=== PATIENT | female | born 1975 | race Caucasian/White ===

== ENCOUNTER → 2016-10-04 | Outpatient (CLI) | payer OTHER ==
[~2016-10-04] MED LIST: CATHETER FLUSH 10 ML SYR IV PRN; IOHEXOL 350 MG/ML 100 ML (OMNIPAQUE 350) VIAL IV ONE; NS 100 ML (IVPB) BAG IV ONE
--- NOTE | 2016-10-04 15:01 | Diagnostic Imaging Report ---
PROCEDURE: CT head with and without contrast. TECHNIQUE: Multiple contiguous axial images were obtained through the brain before and after the administration of intravenous contrast. INDICATION: Vertigo. COMPARISON: CT head without contrast 02/27/2014. FINDINGS: No intracranial hemorrhage, mass effect, hydrocephalus or extra-axial fluid collections. No abnormal intracranial enhancement. No CT evidence of acute infarction. The visualized paranasal sinuses and mastoids are clear. Osseous structures are intact. IMPRESSION: Negative CT head without and with IV contrast. Dictated by: Dictated on workstation # [id number]
== END ==
LOC: RAD 14:02
PROVIDERS: ATTEND Pediatrics
DX: R42 Dizziness and giddiness (principal)
CPT/HCPCS: 70470

== ENCOUNTER → 2017-03-26 | Outpatient (CLI) | payer MEDICAID ==
--- NOTE | 2017-03-26 13:31 | Diagnostic Imaging Report ---
INDICATION: Palpable lumps in the outer and inner aspect of the right breast. Patient reportedly has had a biopsy in the right breast outer location with a benign result. COMPARISON: 04/04/2011. TECHNIQUE: Digital diagnostic mammography was performed bilaterally with a Computer Aided Detection (CAD) system. FINDINGS: Both breasts are heterogeneously dense, limiting the sensitivity of mammography. BB markers were placed at the areas of palpable abnormality in the right breast. No underlying mass is seen. No malignant appearing microcalcifications are seen within either breast. The axillae are unremarkable. IMPRESSION: No mammographic features suspicious for malignancy are identified. Even so, sonographic interrogation of the areas of palpable abnormality in the right breast is recommended for further evaluation. ACR BI-RADS Category 0: Incomplete. (Needs additional imaging evaluation). Result letter will be mailed to the patient. Note: At least 10% of breast cancer is not imaged by mammography. Dictated by: Dictated on workstation # [id number]
--- NOTE | 2017-03-26 20:06 | Diagnostic Imaging Report ---
INDICATION: Right breast lump. CORRELATION is made with an outside ultrasound of the right breast from 04/04/2011. The patient reportedly underwent a right breast biopsy in 2012 at the 9 o'clock location with a benign result. 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 FINDINGS: Sonographic interrogation of the right breast at the 9 o'clock location does show a macrolobulated mass measuring 1.7 x 0.9 x 1.5 cm. This does show internal vascularity. The patient's operative report from 2012 described the lesion biopsied to be 1.3 cm. There is a second region of hypoechogenicity at the 9:30 location of the right breast 4 cm from the nipple measuring 1.2 x 0.5 x 0.6 cm. No internal vascularity is seen. The 3 o'clock location was also evaluated due to patient reporting a palpable abnormality. No mass is identified. The right axilla is unremarkable. IMPRESSION: 1. Macrolobulated, solid hypoechoic mass at the 9 o'clock location of the right breast, 4 cm from the nipple. This does have features suggestive of a fibroadenoma, likely slightly increased in size when compared with outside reports from 6 years earlier. There is a second adjacent lobulated nodule as well, perhaps a smaller fibroadenoma. Followup with a right breast ultrasound in 6 months is recommended to show continued stability. No abnormality at the 3 o'clock location is identified. As BI-RADS category 3 ACR BI-RADS Category 3: Probably benign findings. Result letter will be mailed to the patient. Note: At least 10% of breast cancer is not imaged by mammography. Dictated by: Dictated on workstation # [id number]
== END ==
LOC: RAD 08:47
PROVIDERS: ATTEND Family Medicine
DX: N63.10 Unspecified lump in the right breast, unspecified quadrant (principal)
CPT/HCPCS: 76641; 77066

== ENCOUNTER 2017-09-17 17:18 | Emergency (ER) | payer MEDICAID ==
[~2017-09-17] VITALS: Ht 157.5 cm; Wt 49.9 kg
[2017-09-17] MEDS ORDERED: BUPIVACAINE 0.5% 30 ML (SENSORCAINE) VIAL INJ ONE (17:30)
[2017-09-17] MEDS ORDERED: TETANUS,DIPTH,PERTUSS P/F (BOOSTRIX) 0.5 ML VIAL IM ONE (17:30)
[2017-09-17] MEDS ORDERED: HYDROcodone/APAP 5 MG/325 MG (LORTAB) TAB PO ONE (17:30)
[2017-09-17] MEDS ORDERED: IBUPROFEN 800 MG (MOTRIN) TAB PO ONE (17:30)
[2017-09-17] MEDS ORDERED: LIDOCAINE 2% 20 ML (XYLOCAINE) VIAL INJ ONE (17:30)
[2017-09-17] MEDS ORDERED: LIDOCAINE 1% INJ 20 ML 20 ML VIAL INJ ONE (17:45)
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
[2017-09-17] MEDS ORDERED: HYDR-757 PO (17:59)
[2017-09-17 18:33] VITALS: BP 129/87
--- NOTE | 2017-09-17 18:37 | Diagnostic Imaging Report ---
PATIENT HISTORY: Injury to the right hand. TECHNIQUE: Three views of the right hand. COMPARISON: None. FINDINGS: There is a transverse fracture of the right third finger proximal phalangeal shaft, with minimal ulnar displacement. There is a minimally comminuted oblique fracture at the right fourth finger proximal phalangeal base, which demonstrates minimal dorsal angulation. No intra-articular extension is seen. There is also a minimally comminuted transverse fracture at the right fifth finger proximal phalangeal base with mild ulnar and dorsal angulation but no intra-articular extension seen. There is soft tissue edema about the right second finger. IMPRESSION: Minimally displaced fracture of the right third finger proximal phalanx and minimally angulated fractures of the right fourth and fifth finger proximal phalanges. No intra-articular extension is seen. Dictated by: Dictated on workstation # [id number]
--- OUTSIDE RECORDS SUMMARY | 2017-09-17 22:26 | XMS REPORT ---
Author Author TRACIE SEE Organization [facility] Address [address] [place] [address] Care Team Providers Care Ice Cream Truck Driver Name Role Phone TRACIE SEE Unavailable PROBLEMS Type Condition ICD9-CM Code [id number] Code Onset Dates Condition Status SNOMED Code Problem Migraine without aura and without status migrainosus, not intractable G43.009 Active 310087571 Problem Jerking R25.3 Active 106321139 Problem Vertigo R42 Active 903389593 Problem Moderate single current episode of major depressive disorder F32.1 Active 77784401 ALLERGIES No Known Allergies ENCOUNTERS Encounter Location Date Diagnosis [facility] [address] [address] Mar, Moderate single current episode of major depressive disorder F32.1 ; Vertigo R42 ; Migraine without aura and without status migrainosus, not intractable G43.009 and Vomiting, unspecified R11.10 [facility] [id number] [place] [address] Mar, Dysuria R30.0 ; Diarrhea, unspecified R19.7 ; Vomiting, unspecified R11.10 and Vertigo R42 [facility] [id number] [place] [address] Mar, Lump of right breast N63.[address] [address] Mar, Bacterial conjunctivitis of right eye H10.9 and Lump of right breast N63.10 [facility] [id number] [place] [address] Feb, [facility] [address] [place] [address] Dec, [facility] [address] [place] [address] Nov, Vertigo R42 ; Moderate single current episode of major depressive disorder F32.1 and Refused influenza vaccine Z28.21 [facility] [id number] [address] Nov, [facility] [id number] [place] [address] Nov, [facility] [id number] [place] [address] Nov, [facility] [id number] [place] [address] Nov, [facility] [id number] [place] [address] Oct, Jerking R25.3 and Moderate single current episode of major depressive disorder F32.1 [facility] [id number] [place] [address] Sep, [facility] [id number] [place] [address] Sep, Vertigo R42 [facility] [id number] [place] [address] Sep, Jerking R25.3 ; Vertigo R42 and Nausea and vomiting in adult patient R11.2 [facility] [id number] [address] Sep, [facility] [id number] [place] [address] Sep, Moderate single current episode of major depressive disorder F32.1 ; Vertigo R42 and Dysuria R30.0 [facility] [address] [address] Sep, Moderate single current episode of major depressive disorder F32.1 [facility] [address] [facility] [id number] [address] Aug, Herpes zoster B02.9 IMMUNIZATIONS No Known Immunizations SOCIAL HISTORY Never Assessed REASON FOR VISIT Shortness of breath, numbness in hands and legs intermittently > 1 year. Was seen by Dr Martinez and has a CT of the brain scheduled for this coming Sunday --[facility] PLAN OF CARE Activity Details Follow Up prn Reason: VITAL SIGNS Height 62 in 2016-10-02 Weight 123.9 lbs 2016-10-02 Temperature 98.1 degrees Fahrenheit 2016-10-02 Heart Rate 78 bpm 2016-10-02 Respiratory Rate 20 2016-10-02 Oximetry on room air:99 % 2016-10-02 BMI 22.66 kg/m2 2016-10-02 Blood pressure systolic 118 mmHg 2016-10-02 Blood pressure diastolic 90 mmHg 2016-10-02 MEDICATIONS Medication Instructions Dosage Frequency Start Date End Date Duration Status Cipro 500 mg Orally Twice a day 1 tablet 12h Sep, Sep, 07 days Active Trazodone HCl 50 mg Orally Once a day 1 tablet at bedtime as needed 24h Sep, 90 days Active Meclizine HCl 12.5 MG Orally twice a day 1/2 - 1 tablets as needed 12h Sep, Active Zoloft 100 MG Orally Once a day 1 tablet 24h Sep, 90 days Active RESULTS No Results PROCEDURES Procedure Date Ordered Result Body Site MEASURE BLOOD OXYGEN LEVEL Oct 02, 2016 INSTRUCTIONS MEDICATIONS ADMINISTERED No Known Medications MEDICAL (GENERAL) HISTORY Type Description Date Medical History hx of shingles Medical History History of head injury Surgical History pyloric stenosis - pyloromyotomy as an infant Surgical History section Hospitalization History Pneumonia
--- OUTSIDE RECORDS SUMMARY | 2017-09-17 22:26 | XMS REPORT ---
Author Author NETTE WRAY Organization [facility] Address [address] [place] [address] Care Team Providers Care Engineering Intern Name Role Phone NETTE WRAY Unavailable PROBLEMS Type Condition ICD9-CM Code [id number] Code Onset Dates Condition Status SNOMED Code Problem Migraine without aura and without status migrainosus, not intractable G43.009 Active 898373731 Problem Jerking R25.3 Active 315309649 Problem Vertigo R42 Active 356350686 Problem Moderate single current episode of major depressive disorder F32.1 Active 14006700 ALLERGIES No Information ENCOUNTERS Encounter Location Date Diagnosis [facility] [address] [address] Mar, Moderate single current episode of major depressive disorder F32.1 ; Vertigo R42 ; Migraine without aura and without status migrainosus, not intractable G43.009 and Vomiting, unspecified R11.10 [facility] [id number] [place] [address] Mar, 2017 Dysuria R30.0 ; Diarrhea, unspecified R19.7 ; Vomiting, unspecified R11.10 and Vertigo R42 [facility] [id number] [place] [address] 08 Mar, 2017 Lump of right breast N63.10 [facility] [address] [address] Mar, Bacterial conjunctivitis of right eye H10.9 and Lump of right breast N63.10 [facility] [id number] [place] [address] Feb, [facility] [address] [address] Dec, [facility] [address] [place] [address] Nov, Vertigo R42 ; Moderate single current episode of major depressive disorder F32.1 and Refused influenza vaccine Z28.21 [facility] [id number] [address] Nov, [facility] [id number] [place] [address] Nov, [facility] [id number] [place] [address] Nov, [facility] [id number] [place] [address] Nov, [facility] [id number] [place] [address] Oct, Jerking R25.3 and Moderate single current episode of major depressive disorder F32.1 [facility] [address] [place] [address] Sep, [facility] [id number] [place] [address] Sep, Vertigo R42 [facility] [id number] [place] [address] Sep, Jerking R25.3 ; Vertigo R42 and Nausea and vomiting in adult patient R11.2 [facility] [address] [address] Sep, [facility] [id number] [place] [address] Sep, Moderate single current episode of major depressive disorder F32.1 ; Vertigo R42 and Dysuria R30.0 [facility] [address] [address] Sep, Moderate single current episode of major depressive disorder F32.1 [facility] [address] [facility] [id number] [address] Aug, Herpes zoster B02.9 IMMUNIZATIONS No Known Immunizations SOCIAL HISTORY Never Assessed REASON FOR VISIT Note for work PLAN OF CARE VITAL SIGNS MEDICATIONS No Known Medications RESULTS No Results PROCEDURES No Known procedures INSTRUCTIONS MEDICATIONS ADMINISTERED No Known Medications MEDICAL (GENERAL) HISTORY Type Description Date Medical History hx of shingles Medical History History of head injury Surgical History pyloric stenosis - pyloromyotomy as an infant Surgical History section Hospitalization History Pneumonia
--- OUTSIDE RECORDS SUMMARY | 2017-09-17 22:26 | XMS REPORT ---
Author Author KANA GAYTAN Organization [facility] Address [address] [place] [address] Care Team Providers Care Human Resources Executive Assistant Name Role Phone KANA GAYTAN Unavailable PROBLEMS Type Condition ICD9-CM Code JNL59-MB Code Onset Dates Condition Status SNOMED Code Problem Migraine without aura and without status migrainosus, not intractable G43.009 Active 646885370 Problem Jerking R25.3 Active 725687812 Problem Vertigo R42 Active 429151931 Problem Moderate single current episode of major depressive disorder F32.1 Active 14974442 ALLERGIES No Information ENCOUNTERS Encounter Location Date Diagnosis [facility] [address] [address] Mar, Moderate single current episode of major depressive disorder F32.1 ; Vertigo R42 ; Migraine without aura and without status migrainosus, not intractable G43.009 and Vomiting, unspecified R11.10 [facility] [address] [address] Mar, Dysuria R30.0 ; Diarrhea, unspecified R19.7 ; Vomiting, unspecified R11.10 and Vertigo R42 [facility] [id number] [place] [address] Mar, Lump of right breast N63.10 [facility] [address] [address] Mar, Bacterial conjunctivitis of right eye H10.9 and Lump of right breast N63.10 [facility] [address] [address] Feb, [facility] [address] [address] Dec, [facility] [address] [place] [address] Nov, Vertigo R42 ; Moderate single current episode of major depressive disorder F32.1 and Refused influenza vaccine Z28.21 [facility] [id number] [address] Nov, [facility] [id number] [place] [address] Nov, [facility] [id number] [place] [address] Nov, [facility] [id number] [place] [address] Nov, [facility] [id number] [place] [address] Oct, Jerking R25.3 and Moderate single current episode of major depressive disorder F32.1 [facility] [id number] [place] [address] Sep, [facility] [id number] [place] [address] Sep, Vertigo R42 [facility] [id number] [place] [address] Sep, Jerking R25.3 ; Vertigo R42 and Nausea and vomiting in adult patient R11.2 [facility] [address] [address] Sep, [facility] [id number] [place] [address] Sep, Moderate single current episode of major depressive disorder F32.1 ; Vertigo R42 and Dysuria R30.0 [facility] [address], [place] [address] Sep, Moderate single current episode of major depressive disorder F32.1 [facility] [address] [facility] [id number] [address] Aug, Herpes zoster B02.9 IMMUNIZATIONS No Known Immunizations SOCIAL HISTORY Never Assessed REASON FOR VISIT mammogram order PLAN OF CARE VITAL SIGNS MEDICATIONS No Known Medications RESULTS Name Result Date Reference Range Mammogram Dx, Bilateral 2017-03-26 PROCEDURES No Known procedures INSTRUCTIONS MEDICATIONS ADMINISTERED No Known Medications MEDICAL (GENERAL) HISTORY Type Description Date Medical History hx of shingles Medical History History of head injury Surgical History pyloric stenosis - pyloromyotomy as an infant Surgical History section Hospitalization History Pneumonia
--- OUTSIDE RECORDS SUMMARY | 2017-09-17 22:26 | XMS REPORT ---
Author Author NETTE WRAY Organization [facility] Address [address] [place] [address] Care Team Providers Care Assistant Surveyor Name Role Phone NETTE WRAY Unavailable PROBLEMS Type Condition ICD9-CM Code [id number] Code Onset Dates Condition Status SNOMED Code Problem Migraine without aura and without status migrainosus, not intractable G43.009 Active 878247979 Problem Jerking R25.3 Active 672149604 Problem Vertigo R42 Active 280414738 Problem Moderate single current episode of major depressive disorder F32.1 Active 25964582 ALLERGIES No Information ENCOUNTERS Encounter Location Date Diagnosis [facility] [place] [address] [address] Mar, Moderate single current episode of major depressive disorder F32.1 ; Vertigo R42 ; Migraine without aura and without status migrainosus, not intractable G43.009 and Vomiting, unspecified R11.10 [facility] [id number] [place] [address] 09 Mar, 2017 Dysuria R30.0 ; Diarrhea, unspecified R19.7 ; Vomiting, unspecified R11.10 and Vertigo R42 [facility] [place] [id number] [place] [address] 08 Mar, 2017 Lump of right breast N63.10 [facility] [place] [address] [address] Mar, Bacterial conjunctivitis of right eye H10.9 and Lump of right breast N63.10 [facility] [place] [id number] [place] [address]336[address] Feb, [facility] [place] [address] [address] Dec, [facility] [place] [address] [place] [address] Nov, Vertigo R42 ; Moderate single current episode of major depressive disorder F32.1 and Refused influenza vaccine Z28.21 [facility] [place] [id number] [address] Nov, [facility] [place] [id number] [place] [address]- [address] Nov, [facility] [place] [id number] [place] [address]66- 1992 Nov, [facility] [place] [id number] [place] [address] 61751- 2537 Nov, [facility] [place] [id number] [place] [address] 10164- 9328 Oct, Jerking R25.3 and Moderate single current episode of major depressive disorder F32.1 [facility] [place] [address] [place] [address] 57856- 4313 Sep, [facility] [place] [id number] [place] [address]70- 9469 Sep, Vertigo R42 [facility] [place] [id number] [place] [address] 35954- 1427 Sep, Jerking R25.3 ; Vertigo R42 and Nausea and vomiting in adult patient R11.2 [facility] [place] [address] [address] Sep, [facility] [place] [id number] [place] [address] 40752- 2667 Sep, Moderate single current episode of major depressive disorder F32.1 ; Vertigo R42 and Dysuria R30.0 [facility] [place] [address] [address] Sep, Moderate single current episode of major depressive disorder F32.1 [facility] [address] [facility] [id number] [place] [address] Aug, Herpes zoster B02.9 IMMUNIZATIONS No Known Immunizations SOCIAL HISTORY Never Assessed REASON FOR VISIT PLAN OF CARE VITAL SIGNS MEDICATIONS No Known Medications RESULTS No Results PROCEDURES No Known procedures INSTRUCTIONS MEDICATIONS ADMINISTERED No Known Medications MEDICAL (GENERAL) HISTORY Type Description Date Medical History hx of shingles Medical History History of head injury Surgical History pyloric stenosis - pyloromyotomy as an infant Surgical History section Hospitalization History Pneumonia
--- OUTSIDE RECORDS SUMMARY | 2017-09-17 22:26 | XMS REPORT ---
Author Author RAJI MINER Organization [facility] Address [address] [place] [address] Care Team Providers Care Terminal Worker Name Role Phone SHEEHAN RAJI COSTELLO Unavailable PROBLEMS Type Condition ICD9-CM Code BVC49-RG Code Onset Dates Condition Status SNOMED Code Problem Migraine without aura and without status migrainosus, not intractable G43.009 Active 327440184 Problem Jerking R25.3 Active 499252302 Problem Vertigo R42 Active 860953556 Problem Moderate single current episode of major depressive disorder F32.1 Active 30977567 ALLERGIES No Known Allergies ENCOUNTERS Encounter Location Date Diagnosis [facility] [address] [address] Mar, Moderate single current episode of major depressive disorder F32.1 ; Vertigo R42 ; Migraine without aura and without status migrainosus, not intractable G43.009 and Vomiting, unspecified R11.10 [facility] [id number] [place] [address] Mar, Dysuria R30.0 ; Diarrhea, unspecified R19.7 ; Vomiting, unspecified R11.10 and Vertigo R42 [facility] [id number] [place] [address] Mar, Lump of right breast N63.[address] [address] Mar, Bacterial conjunctivitis of right eye H10.9 and Lump of right breast N63.10 [facility] [id number] [place] [address]- 2913 Feb, [facility] [address] [address] Dec, [facility] [address] [place] [address]- 8580 Nov, Vertigo R42 ; Moderate single current episode of major depressive disorder F32.1 and Refused influenza vaccine Z28.21 [facility] [address] [id number] [address] Nov, [facility] [id number] [place] [address]329- 4427 Nov, [facility] [id number] [place] [address]- 2057 Nov, [facility] [id number] [place] [address]56- 4[address] Nov, [facility] [id number] [place] [address]59- 6335 Oct, Jerking R25.3 and Moderate single current episode of major depressive disorder F32.1 [facility] [id number] [place] [address] 18654- [address] Sep, [facility] [id number] [place] [address]- 4[address] Sep, Vertigo R42 [facility] [id number] [place] [address]- [address] Sep, Jerking R25.3 ; Vertigo R42 and Nausea and vomiting in adult patient R11.2 [facility] [address] [id number] [address] Sep, [facility] [id number] [place] [address]- 0091 Sep, Moderate single current episode of major depressive disorder F32.1 ; Vertigo R42 and Dysuria R30.0 [facility] [address] [address] Sep, Moderate single current episode of major depressive disorder F32.1 [facility] [address] [facility] [id number] [place] [address] Aug, Herpes zoster B02.9 IMMUNIZATIONS No Known Immunizations SOCIAL HISTORY Never Assessed REASON FOR VISIT N/V/D for 2 days. also complaining of dizziness since yesterday. [email or web address], also complaining of dysuria for 2 days. PLAN OF CARE Activity Details Follow Up with Dr. Martinez on scheduled appointment. Reason: VITAL SIGNS Height 62 in 2017-03-23 Weight 116.2 lbs 2017-03-23 Temperature 99.5 degrees Fahrenheit 2017-03-23 Heart Rate 72 bpm 2017-03-23 Respiratory Rate 20 2017-03-23 BMI 21.25 kg/m2 2017-03-23 Blood pressure systolic 106 mmHg 2017-03-23 Blood pressure diastolic 62 mmHg 2017-03-23 MEDICATIONS Medication Instructions Dosage Frequency Start Date End Date Duration Status Zofran 8 MG Orally TID PRN 1 tablet Mar, Active Trazodone HCl 50 mg Orally Once a day 1 tablet at bedtime as needed 24h Sep, 90 days Active Zoloft 100 MG Orally Once a day 1 tablet 24h Sep, 90 days Active Topamax 50 mg Orally Twice a day 1 tablet 12h Feb, 90 days Active Flonase 50 MCG/ACT Nasally twice a day 1 spray in each nostril 12h Mar, 07 days Active Meclizine HCl 12.5 MG Orally twice a day 1/2 - 1 tablets as needed 12h Sep, Not-Taking Ofloxacin 0.3 % Ophthalmic Four times a day 1 drop into affected eye 6h Mar, Mar, 07 days Active Topamax 25 MG Orally Twice a day 1 tablet 12h 90 days Active RESULTS Name Result Date Reference Range UA LONG DIP (IN HOUSE) 2017-03-23 Lot # [id number] Exp date 2017 10 31 Clarity clear Color yellow Odor none GLU negative DIPIKA negative KET negative SG <=1.005 BLO negative pH 6.0 Protein negative URO 0.2 NIT negative SANDY negative Lot # [id number] Exp date May 2017 PROCEDURES Procedure Date Ordered Result Body Site URINALYSIS, AUTO, W/O SCOPE Mar 23, 2017 INSTRUCTIONS MEDICATIONS ADMINISTERED No Known Medications MEDICAL (GENERAL) HISTORY Type Description Date Medical History hx of shingles Medical History History of head injury Surgical History pyloric stenosis - pyloromyotomy as an infant Surgical History section Hospitalization History Pneumonia
--- OUTSIDE RECORDS SUMMARY | 2017-09-17 22:26 | XMS REPORT ---
Author Author KEVIN Khalil [facility] Address [address] [place] [address] Care Team Providers Care Asparagus Cutter Name Role Phone KEVIN Khalil Unavailable PROBLEMS Type Condition ICD9-CM Code OXM82-KG Code Onset Dates Condition Status SNOMED Code Problem Migraine without aura and without status migrainosus, not intractable G43.009 Active 437772642 Problem Jerking R25.3 Active 875628815 Problem Vertigo R42 Active 655270435 Problem Moderate single current episode of major depressive disorder F32.1 Active 11446116 ALLERGIES No Known Allergies ENCOUNTERS Encounter Location Date Diagnosis [place] [address] [address] Mar, Moderate single current episode of major depressive disorder F32.1 ; Vertigo R42 ; Migraine without aura and without status migrainosus, not intractable G43.009 and Vomiting, unspecified R11.10 [facility] [address] [address] Mar, Dysuria R30.0 ; Diarrhea, unspecified R19.7 ; Vomiting, unspecified R11.[address] [facility] [id number] [place] [address] Mar, Lump of right breast N63.10 [place] [address] [address] Mar, Bacterial conjunctivitis of right eye H10.9 and Lump of right breast N63.10 [place] [address] [address] Feb, [place] [address] [place] [address] Dec, [facility] [id number] [place] [address]- [address] Nov, Vertigo R42 ; Moderate single current episode of major depressive disorder F32.1 and Refused influenza vaccine Z28.21 [facility] [id number] [place] [address]- 5079 Nov, [facility] [id number] [place] [address]- [address] Nov, [facility] [id number] [place] [address]- 5814 Nov, [facility] [id number] [place] [address]60- 2857 Nov, [facility] [id number] [place] [address] 31103- 1736 Oct, Jerking R25.3 and Moderate single current episode of major depressive disorder F32.1 [facility] [id number] [place] [address]21- [address]163 Sep, [facility] [id number] [place] [address] 36460- 0774 Sep, Vertigo R42 [facility] [id number] [place] [address]13- 2143 Sep, Jerking R25.3 ; Vertigo R42 and Nausea and vomiting in adult patient R11.2 [facility] [id number] [place] [address]476- [address]171 Sep, [facility] [id number] [place] [address]64- 1401 Sep, Moderate single current episode of major depressive disorder F32.1 ; Vertigo R[address] [facility] [address] [address] Sep, Moderate single current episode of major depressive disorder F32.1 [facility] [address] [facility] [id number] [place] [address] Aug, Herpes zoster B02.9 IMMUNIZATIONS No Known Immunizations SOCIAL HISTORY Never Assessed REASON FOR VISIT red area and white blisters under left breast that is very painful according to ptCitlalli parada, has been there for 2 days and has gotten worse. PLAN OF CARE Activity Details Follow Up prn Reason: VITAL SIGNS Height 62 in 2016-09-04 Weight 128.4 lbs 2016-09-04 Temperature 97.9 degrees Fahrenheit 2016-09-04 Heart Rate 76 bpm 2016-09-04 Respiratory Rate 18 2016-09-04 BMI 23.48 kg/m2 2016-09-04 Blood pressure systolic 128 mmHg 2016-09-04 Blood pressure diastolic 80 mmHg 2016-09-04 MEDICATIONS Medication Instructions Dosage Frequency Start Date End Date Duration Status Mupirocin 2 % Externally Three times a day 1 application to affected area 8h Aug, Aug, 5 day(s) Active Valacyclovir HCl 500 MG Orally every 8 hrs 2 tablets 8h Aug, Aug, 7 days Active Hydrocodone-Acetaminophen 5-325 MG Orally every 6 hrs 1 tablet as needed 6h Aug, Aug, 5 days Active RESULTS No Results PROCEDURES No Known procedures INSTRUCTIONS MEDICATIONS ADMINISTERED No Known Medications MEDICAL (GENERAL) HISTORY Type Description Date Medical History hx of shingles Medical History History of head injury Surgical History pyloric stenosis - pyloromyotomy as an infant Surgical History section Hospitalization History Pneumonia
--- OUTSIDE RECORDS SUMMARY | 2017-09-17 22:26 | XMS REPORT ---
Author Author NETTE WRAY Organization [facility] Address [address] [place] [address] Care Team Providers Care Process Equipment Operator Name Role Phone NETTE WRAY Unavailable PROBLEMS Type Condition ICD9-CM Code ZWI53-TP Code Onset Dates Condition Status SNOMED Code Problem Migraine without aura and without status migrainosus, not intractable G43.009 Active 288793956 Problem Jerking R25.3 Active 072389587 Problem Vertigo R42 Active 780466278 Problem Moderate single current episode of major depressive disorder F32.1 Active 79154694 ALLERGIES No Information ENCOUNTERS Encounter Location Date Diagnosis [facility] [address] [address] Mar, Moderate single current episode of major depressive disorder F32.1 ; Vertigo R42 ; Migraine without aura and without status migrainosus, not intractable G43.009 and Vomiting, unspecified R11.10 [facility] [id number] [place] [address] 09 Mar, 2017 Dysuria R30.0 ; Diarrhea, unspecified R19.7 ; Vomiting, unspecified R11.10 and Vertigo R42 [facility] [id number] [place] [address]10- [address] Mar, Lump of right breast N63.10 [facility] [address] [address] Mar, Bacterial conjunctivitis of right eye H10.9 and Lump of right breast N63.10 [facility] [id number] [place] [address] 31207- [address] Feb, [facility] [address] [address] Dec, [facility] [address] [place] [address]13- 5658 Nov, Vertigo R42 ; Moderate single current episode of major depressive disorder F32.1 and Refused influenza vaccine Z28.21 [facility] [id number], [place] [address] Nov, [facility] [id number] [place] [address] 05536- 0737 Nov, [facility] [id number] [place] [address] 72122- 6721 Nov, [facility] [id number] [place] [address] 81543- 9604 Nov, [facility] [id number] [place] [address] 57133- 8769 Oct, Jerking R25.3 and Moderate single current episode of major depressive disorder F32.1 [facility] [address] [place] [address] 50278- 5963 Sep, [facility] [id number] [place] [address] 81430- 0297 Sep, Vertigo R42 [facility] [id number] [place] [address] 32748- 3319 Sep, Jerking R25.3 ; Vertigo R42 and Nausea and vomiting in adult patient R11.2 [facility] [address], [place] [address] Sep, [facility] [id number] [place] [address] 52173- 2250 Sep, Moderate single current episode of major depressive disorder F32.1 ; Vertigo R42 and Dysuria R30.0 [facility] [address], [place] [address] Sep, Moderate single current episode of major depressive disorder F32.1 [facility] [address] [facility] [id number] [place] [address] Aug, Herpes zoster B02.9 IMMUNIZATIONS No Known Immunizations SOCIAL HISTORY Never Assessed REASON FOR VISIT Neurology PLAN OF CARE VITAL SIGNS MEDICATIONS Medication Instructions Dosage Frequency Start Date End Date Duration Status Topamax 50 mg Orally Twice a day 1 tablet 12h Feb, 90 days Active Topamax 25 MG Orally Twice a day 1 tablet 12h 90 days Active RESULTS No Results PROCEDURES No Known procedures INSTRUCTIONS MEDICATIONS ADMINISTERED No Known Medications MEDICAL (GENERAL) HISTORY Type Description Date Medical History hx of shingles Medical History History of head injury Surgical History pyloric stenosis - pyloromyotomy as an infant Surgical History section Hospitalization History Pneumonia
--- OUTSIDE RECORDS SUMMARY | 2017-09-17 22:26 | XMS REPORT ---
Author Author NETTE WRAY Organization [facility] Address [address] [place] [address] Care Team Providers Care Facility Service Manager Name Role Phone NETTE WRAY Unavailable PROBLEMS Type Condition ICD9-CM Code WCV47-JW Code Onset Dates Condition Status SNOMED Code Problem Migraine without aura and without status migrainosus, not intractable G43.009 Active 133270494 Problem Jerking R25.3 Active 109463925 Problem Vertigo R42 Active 859664540 Problem Moderate single current episode of major depressive disorder F32.1 Active 16682140 ALLERGIES No Known Allergies ENCOUNTERS Encounter Location Date Diagnosis [facility] [address] [address] Mar, Moderate single current episode of major depressive disorder F32.1 ; Vertigo R42 ; Migraine without aura and without status migrainosus, not intractable G43.009 and Vomiting, unspecified R11.10 [facility] IN [facility] [id number] [place] [address] Mar, Dysuria R30.0 ; Diarrhea, unspecified R19.7 ; Vomiting, unspecified R11.10 and Vertigo R42 [facility] [id number] [place] [address]87- 0[address] Mar, Lump of right breast N63.10 [facility] [address] [address] Mar, Bacterial conjunctivitis of right eye H10.9 and Lump of right breast N63.10 [facility] [id number] [place] [address] 8[address]46- 1410 Feb, [facility] [address] [address] Dec, [facility] [address] [place] [address] 8[address]29- 5334 Nov, Vertigo R42 ; Moderate single current episode of major depressive disorder F32.1 and Refused influenza vaccine Z28.21 [facility] [id number] [address] Nov, [facility] [id number] [place] [address] 82198- 5358 Nov, [facility] [id number] [place] [address] 65427- 0431 Nov, [facility] [id number] [place] [address]84- 5275 Nov, [facility] [id number] [place] [address] 21888- 4640 Oct, Jerking R25.3 and Moderate single current episode of major depressive disorder F32.1 [facility] [id number] [place] [address] 30580- 4147 Sep, [facility] [id number] [place] [address] 94663- 5136 Sep, Vertigo R42 [facility] [id number] [place] [address] 34774- 4297 Sep, Jerking R25.3 ; Vertigo R42 and Nausea and vomiting in adult patient R11.2 [facility] [address] [address] Sep, [facility] [address] [place] [id number] [place] [address]22- 0637 Sep, Moderate single current episode of major depressive disorder F32.1 ; Vertigo R42 and Dysuria R30.0 [facility] [address] [address] Sep, Moderate single current episode of major depressive disorder F32.1 [facility] [address] [facility] [id number] [place] [address] Aug, Herpes zoster B02.9 IMMUNIZATIONS No Known Immunizations SOCIAL HISTORY Never Assessed REASON FOR VISIT CT f/u, Jerking has gotten worse, work put her on leave. Happening when sitting and sleeping, keeping her awake. Starts in lower back then moves up torso.Causing nausea., Before the CT and off work, was seen in [place]. Legs and arms numb, dizzy, felt like going to pass out, difficulty walking. They were too busy to see her in [place] and sent her to , was ordered meclizine. , CBrumbackRN PLAN OF CARE Activity Details Follow Up 6 Weeks Reason:depression/vertigo VITAL SIGNS Height 62 in 2016-10-24 Weight 121.7 lbs 2016-10-24 Temperature 98.1 degrees Fahrenheit 2016-10-24 Heart Rate 72 bpm 2016-10-24 Respiratory Rate 18 2016-10-24 BMI 22.26 kg/m2 2016-10-24 Blood pressure systolic 122 mmHg 2016-10-24 Blood pressure diastolic 84 mmHg 2016-10-24 MEDICATIONS Medication Instructions Dosage Frequency Start Date End Date Duration Status Trazodone HCl 50 mg Orally Once a [...]
--- OUTSIDE RECORDS SUMMARY | 2017-09-17 22:26 | XMS REPORT ---
Author Author NETTE WRAY Organization [facility] Address [address] [place] [address] Care Team Providers Care Pcb Designer Name Role Phone NETTE WRAY Unavailable PROBLEMS Type Condition ICD9-CM Code JCW01-RU Code Onset Dates Condition Status SNOMED Code Problem Migraine without aura and without status migrainosus, not intractable G43.009 Active 628546803 Problem Jerking R25.3 Active 385986594 Problem Vertigo R42 Active 457534819 Problem Moderate single current episode of major depressive disorder F32.1 Active 33177844 ALLERGIES No Known Allergies ENCOUNTERS Encounter Location Date Diagnosis [facility] [address] [address] Mar, Moderate single current episode of major depressive disorder F32.1 ; Vertigo R42 ; Migraine without aura and without status migrainosus, not intractable G43.009 and Vomiting, unspecified R11.10 [facility] [id number] [place] [address] 09 Mar, 2017 Dysuria R30.0 ; Diarrhea, unspecified R19.7 ; Vomiting, unspecified R11.10 and Vertigo R42 [facility] [id number] [place] [address] Mar, Lump of right breast N63.10 [facility] [address] [address] Mar, Bacterial conjunctivitis of right eye H10.9 and Lump of right breast N63.10 [facility] [id number] [place] [address] Feb, [facility] [address] [address] Dec, [facility] [address] [place] [address] Nov, Vertigo R42 ; Moderate single current episode of major depressive disorder F32.1 and Refused influenza vaccine Z28.21 [facility] [id number] [address] Nov, [facility] [id number] [place] [address] Nov, [facility] [id number] [place] [address] Nov, [facility] [id number] [place] [address] Nov, [facility] [id number] [place] [address] Oct, Jerking R25.3 and Moderate single current episode of major depressive disorder F32.1 [facility] [id number] [place] [address] Sep, [facility] [id number] [place] [address] Sep, Vertigo R42 [facility] [id number] [place] [address] Sep, Jerking R25.3 ; Vertigo R42 and Nausea and vomiting in adult patient R11.2 [facility] [address] [place] [address] Sep, [facility] [id number] [place] [address] Sep, Moderate single current episode of major depressive disorder F32.1 ; Vertigo R42 and Dysuria R30.0 [facility] [address], [place] [address] Sep, Moderate single current episode of major depressive disorder F32.1 [facility] [address] [facility] [id number] [place] [address] Aug, Herpes zoster B02.9 IMMUNIZATIONS No Known Immunizations SOCIAL HISTORY Never Assessed REASON FOR VISIT Establish Care-YOMAIRA Jama, C/o of vertigo that is always there. Feels as if she is going to pass out. , A lot of situation stress w/ boyfriend. Tearful. Exhausted. States she is an "emotional basketcase", Trouble sleeping, constant fatigue, Breast lump PLAN OF CARE Activity Details Follow Up 2 Weeks Reason:depression VITAL SIGNS Height 62 in 2016-09-14 Weight 126.9 lbs 2016-09-14 Temperature 98.6 degrees Fahrenheit 2016-09-14 Heart Rate 90 bpm 2016-09-14 Respiratory Rate 18 2016-09-14 BMI 23.21 kg/m2 2016-09-14 Blood pressure systolic 122 mmHg 2016-09-14 Blood pressure diastolic 80 mmHg 2016-09-14 MEDICATIONS Medication Instructions Dosage Frequency Start Date End Date Duration Status Trazodone HCl 50 mg Orally Once a day 1 tablet at bedtime as needed 24h Sep, 90 days Active Zoloft 50 mg Orally Once a day 1 tablet 24h Sep, 30 day(s) Active RESULTS No Results PROCEDURES No Known procedures INSTRUCTIONS MEDICATIONS ADMINISTERED No Known Medications MEDICAL (GENERAL) HISTORY Type Description Date Medical History hx of shingles Medical History History of head injury Surgical History pyloric stenosis - pyloromyotomy as an infant Surgical History section Hospitalization History Pneumonia
--- OUTSIDE RECORDS SUMMARY | 2017-09-17 22:27 | XMS REPORT | Continuity of Care Document ---
Author Author [facility] Address Unknown Phone Unavailable Allergies Active Description Code Type Severity Reaction Onset Reported/Identified Relationship to Patient Clinical Status Yes No Known Drug Allergies [id number] Drug Allergy Unknown N/A 02/27/2014 Medications There is no data. Problems Date Dx Coded Attending Type Code Diagnosis Diagnosed By 03/31/2011 D 623.5 NONINFECT VAG LEUKORRHEA 07/29/2012 JIMI DAVENPORT MD 564.00 CONSTIPATION NOS 07/29/2012 JIMI DAVENPORT MD 729.5 PAIN IN LIMB 07/29/2012 JIMI DAVENPORT MD 780.52 INSOMNIA NOS 07/29/2012 JIMI DAVENPORT MD 787.01 NAUSEA WITH VOMITING 07/29/2012 JIMI DAVENPORT MD 919.4 INSECT BITE NEC 07/29/2012 JIMI DAVENPORT MD E000.9 EXT CAUSE STATUS NOS 07/29/2012 JIMI DAVENPORT MD E030 ACTIVITY NOS 07/29/2012 JIMI DAVENPORT MD E849.[address] NOS 07/29/2012 JIMI DAVENPORT MD E906.4 NONVENOM ARTHROPOD BITE 10/23/2012 TERE RUBY 780.60 FEVER NOS 10/23/2012 TERE RUBY 789.00 ABDOMINAL PAIN, UNSPECIF 02/27/2014 ALEM VILLAGOMEZ MD Ot 780.4 02/27/2014 IRENE BERG MD Ot 311 DEPRESSIVE DISORDER NEC 02/27/2014 IRENE BERG MD Ot 780.4 DIZZINESS AND GIDDINESS 02/27/2014 ALEM VILLAGOMEZ MD Ot 780.4 10/03/2016 ALEM VILLAGOMEZ MD, Ot 780.4 DIZZINESS AND GIDDINESS 10/04/2016 ALEM VILLAGOMEZ MD Ot 780.4 DIZZINESS AND GIDDINESS 10/04/2016 ALEM VILLAGOMEZ MD, Ot 780.4 DIZZINESS AND GIDDINESS 10/05/2016 NETTE RODNEY MD Ot R42 DIZZINESS AND GIDDINESS 11/01/2016 NETTE RODNEY MD Ot R42 DIZZINESS AND GIDDINESS 11/24/2016 NETTE RODNEY MD Ot R42 DIZZINESS AND GIDDINESS 01/09/2017 NETTE RODNEY MD Ot R42 DIZZINESS AND GIDDINESS 01/31/2017 NETTE RODNEY MD Ot R42 DIZZINESS AND GIDDINESS 01/31/2017 DAHLIA QUIROZ, ALEM L Ot 780.4 DIZZINESS AND GIDDINESS 01/31/2017 NETTE RODNEY MD Ot R42 DIZZINESS AND GIDDINESS 03/26/2017 DAHLIA QUIROZ, ALEM L Ot 780.4 DIZZINESS AND GIDDINESS 03/26/2017 NETTE RODNEY MD Ot R42 DIZZINESS AND GIDDINESS 03/27/2017 LUKAS QUIROZ, KANA R Ot N63.10 UNSPECIFIED LUMP IN THE RIGHT BREAST, UN 03/27/2017 KANA GAYTAN MD Ot N63.10 UNSPECIFIED LUMP IN THE RIGHT BREAST, UN Procedures Code Description [place] [address] CULTURE, BACTERIA, OTHER ETHEL QUIROZ, JIMI Burgess 03/31/2011 11359 ROUTINE VENIPUNCTURE ETHEL QUIROZ, JIMI Burgess 07/29/2012 97326 COMPREHEN METABOLIC PANEL ETHEL QUIROZ, IJMI Burgess 07/29/2012 24503 URINALYSIS, AUTO W/SCOPE ETHEL QUIROZ, JIMI Burgess 07/29/2012 69430 COMPLETE CBC W/AUTO DIFF WBC ETHEL QUIROZ, JIMI Burgess 07/29/2012 99662 ROUTINE VENIPUNCTURE TERE RUBY 10/23/2012 13031 COMPREHEN METABOLIC PANEL TERE RUBY 10/23/2012 37222 ASSAY OF AMYLASE TERE RUBY 10/23/2012 17579 ASSAY OF LIPASE TERE RUBY 10/23/2012 96799 BL SMEAR W/DIFF WBC COUNT TERE RUBY 10/23/2012 08236 COMPLETE CBC, AUTOMATED TERE RUBY 10/23/2012 92219 HETEROPHILE ANTIBODIES TERE RUBY 10/23/2012 93196 MYCOPLASMA ANTIBODY TERE RUBY 10/23/2012 Results Test Result Range COMPLETE BLOOD COUNT - 07/29/12 11:44 Platelet 281 10^3u 142-424 MPV 10.2 FL 9.4-12.4 [place] # 0.48 10^3u 0.0-1.0 RBC 3.81 10^6u 4.04-6.13 [place] % 10.0 % 0-12 RDW 12.9 % 11.6-14.8 Neut # 2.66 10^3u 2.0-6.9 Neut % 55.7 % 37-80 WBC 4.78 10^3u 4.60-10.20 MCV 91.3 FL 80.0-97.0 Baso # 0.03 10^3u 0.0-0.1 Baso % 0.6 % 0-2 Eos # 0.31 10^3u 0-0.7 Eos % 6.5 % 0-7 Lymph % 27.2 % 10-50 MCHC 33.9 G/DL 31.8-35.4 MCH 31.0 PG 27.0-31.2 Lymph # 1.30 10^3u 0.6-3.4 HGB 11.8 G/DL 12.2-18.1 HCT 34.8 % 37.7-53.7 Urinalysis - 07/29/12 11:44 Glucose Negative Negative Leukocyte Negative Negative Nitrite Negative Negative pH 7.5 5.5-7.5 Urine Appearance Clear Clear Protein Negative Negative Ketones Negative Negative Urobilinogen 0.2 0.2-1.0 Urine RBC N0-2 Specific [place] 1.020 1.010-1.020 Urine Bacteria Trace Blood Negative Negative Color Yellow Yellow Squamous Epithelial Cells Trace Bilirubin Negative Negative CMP - 07/29/12 11:44 Osmo Calculated 271 MOSM 261-280 Sodium 142 MMOLL 137-145 T. Protein 6.8 G/DL 6.3-8.2 Potassium 4.3 MMOLL 3.6-5.0 T Bili 0.3 MG/DL 0.2-1.3 Calcium 9.3 MG/DL 8.4-10.2 BUN 10 MG/DL 7-21 Chloride 107 MMOLL 98-107 AST 43 U/L 15-46 ALT 53 U/L 7-56 Albumin 3.8 G/DL 3.5-5.0 A/G Ratio 1.2 RATIO 1.2-2.2 Bun/Creat 16.6 RATIO 7-25 Alk Phos 63 U/L 38-126 CO2 25 MMOLL 22-30 Glucose 82 MG/DL 65-110 Globulin 3.0 2.4-3.5 Creatinine 0.6 MG/DL 0.7-1.5 [place] Screen - 10/23/12 17:06 [place] Screen NEG Negative Mycoplasma Antibody - 10/23/12 17:06 Mycoplasma Antibody NEG Negative COMPLETE BLOOD COUNT - 10/23/12 17:06 Platelet 315 10^3u 142-424 MPV 10.0 FL 9.4-12.4 [place] # 1.02 10^3u 0.0-1.0 [place] 11.0 RBC 3.61 10^6u 4.04-6.13 [place] % 10.3 % 0-12 RDW 12.5 % 11.6-14.8 Seg 69.0 Neut # 7.23 10^3u 2.0-6.9 Neut % 72.8 % 37-80 WBC 9.93 10^3u 4.60-10.20 MCV 88.9 FL 80.0-97.0 Baso # 0.04 10^3u 0.0-0.1 Baso % 0.4 % 0-2 Eos 2.0 Eos # 0.22 10^3u 0-0.7 Eos % 2.2 % 0-7 Lymph % 14.3 % 10-50 MCHC 34.0 G/DL 31.8-35.4 MCH 30.2 PG 27.0-31.2 Lymph # 1.42 10^3u 0.6-3.4 Lymph 18.0 HGB 10.9 G/DL 12.2-18.1 HCT 32.1 % 37.7-53.7 CMP - 10/23/12 17:06 Osmo Calculated 264 MOSM 261-280 Sodium 138 MMOLL 137-145 T. Protein 7.5 G/DL 6.3-8.2 Potassium 3.9 MMOLL 3.6-5.0 T Bili 0.4 MG/DL 0.2-1.3 Calcium 9.3 MG/DL 8.4-10.2 BUN 9 MG/DL 7-21 Chloride 100 MMOLL 98-107 AST 51 U/L 15-46 ALT 52 U/L 7-56 Albumin 3.8 G/DL 3.5-5.0 A/G Ratio 1.0 RATIO 1.2-2.2 Bun/Creat 12.9 RATIO 7-25 Alk Phos 121 U/L 38-126 CO2 25 MMOLL 22-30 Glucose 83 MG/DL 65-110 Globulin 3.7 2.4-3.5 Creatinine 0.7 MG/DL 0.7-1.5 Amylase - 10/23/12 17:06 Amylase 51 U/L 30-110 Lipase - 10/23/12 17:06 Lipase 92 U/L 23-300 CBC With Differential/Platelet - 09/28/16 09:19 WBC 5.9 x10E3/uL 3.4-10.8 RBC 4.32 x10E6/uL 3.77-5.28 Hemoglobin 12.4 g/dL 11.1-15.9 Hematocrit 37.6 % 34.0-46.6 MCV 87 fL 79-97 MCH 28.7 pg 26.6-33.0 MCHC 33.0 g/dL 31.5-35.7 RDW 14.6 % 12.3-15.4 Platelets 302 x10E3/uL 150-379 Neutrophils 65 % Lymphs 20 % Monocytes 12 % Eos 2 % Basos 1 % Neutrophils (Absolute) 3.9 x10E3/uL 1.4-7.0 Lymphs (Absolute) 1.2 x10E3/uL 0.7-3.1 Monocytes(Absolute) 0.7 x10E3/uL 0.1-0.9 Eos (Absolute) 0.1 x10E3/uL 0.0-0.4 Baso (Absolute) 0.0 x10E3/uL 0.0-0.2 Immature Granulocytes 0 % Immature Grans (Abs) 0.0 x10E3/uL 0.0-0.1 Comp. Metabolic Panel (14) - 09/28/16 09:19 Glucose, Serum 84 mg/dL 65-99 BUN 11 mg/dL 6-20 Creatinine, Serum 0.67 mg/dL 0.57-1.00 eGFR If NonAfricn Am 111 mL/min/1.73 >59 eGFR If Africn Am 128 mL/min/1.73 >59 BUN/Creatinine Ratio 16 9-23 Sodium, Serum 139 mmol/L 134-144 Potassium, Serum 4.2 mmol/L 3.5-5.2 Chloride, Serum 103 mmol/L 96-106 Carbon Dioxide, Total 21 mmol/L 18-29 Calcium, Serum 9.4 mg/dL 8.7-10.2 Protein, Total, Serum 6.9 g/dL 6.0-8.5 Albumin, Serum 4.2 g/dL 3.5-5.5 Globulin, Total 2.7 g/dL 1.5-4.5 A/G Ratio 1.6 1.2-2.2 Bilirubin, Total 0.2 mg/dL 0.0-1.2 Alkaline Phosphatase, S 43 IU/L 39-117 AST (SGOT) 16 IU/L 0-40 ALT (SGPT) 7 IU/L 0-32 Lipid Panel - 09/28/16 09:19 Cholesterol, Total 160 mg/dL 100-199 Triglycerides 58 mg/dL 0-149 HDL Cholesterol 62 mg/dL >39 VLDL Cholesterol Eddi 12 mg/dL 5-40 LDL Cholesterol Calc 86 mg/dL 0-99 TSH - 09/28/16 09:19 TSH 1.100 uIU/mL 0.450-4.500 Urine Culture, Routine - 09/28/16 09:19 Urine Culture, Routine Note Encounters ACCT No. Visit Date/Time Discharge Status Pt. Type Provider Facility Loc./Unit Complaint [id number] 10/23/2012 16:57:00 10/23/2012 16:57:00 DIS Outpatient JAZZMINE PRIEST, [facility] OTHER [id number] 07/29/2012 11:19:00 07/29/2012 11:19:00 DIS [id number] 03/31/2011 12:13:00 Document Registration [id number] 03/26/2017 08:47:00 03/26/2017 23:59:59 CLS Outpatient LUKAS QUIROZ, KANA Cancino [facility] RAD N63.10 [id number] 12/13/2016 10:15:00 12/13/2016 23:59:59 CLS Preadmit OTHER, UNLISTED [facility] RAD R42 [id number] 10/04/2016 14:02:00 10/04/2016 23:59:59 CLS Outpatient NETTE RODNEY MD [facility] RAD R42 VERTIGO [id number] 02/27/2014 09:36:00 02/27/2014 12:50:00 DIS Emergency OTIS QUIROZ, IRENE Palacios [facility] ER DIZZY [id number] 03/22/2013 12:08:00 03/22/2013 23:59:59 CLS Outpatient ALEM VILLAGOMEZ MD [facility] LAB VERTIGO [id number] 09/29/2016 09:11:00 Document Registration [id number] 09/30/2016 22:06:00 Document Registration [id number] 04/11/2017 16:00:00 04/11/2017 23:59:59 C[facility]
== END 2017-09-17 18:33 | disposition home or self-care (01) ==
LOC: EDUNIT# 17:18 → ER 17:20
DX: T74.11XA Adult physical abuse, confirmed, initial encounter (principal); S62.616A Displaced fracture of proximal phalanx of right little finger, initial encounter for closed fracture; S62.612A Displaced fracture of proximal phalanx of right middle finger, initial encounter for closed fracture; S62.614A Displaced fracture of proximal phalanx of right ring finger, initial encounter for closed fracture; Z23 Encounter for immunization; W23.1XXA Caught, crushed, jammed, or pinched between stationary objects, initial encounter
CPT/HCPCS: 64450; 73130; 90471; 90715

== ENCOUNTER → 2017-11-01 | Outpatient (CLI) | payer MEDICAID ==
[~2017-11-01] MED LIST changes: -CATHETER FLUSH 10 ML SYR IV PRN; +HYDR-4226 PO; -IOHEXOL 350 MG/ML 100 ML (OMNIPAQUE 350) VIAL IV ONE; -NS 100 ML (IVPB) BAG IV ONE
--- NOTE | 2017-11-01 13:13 | Diagnostic Imaging Report ---
INDICATION: Six-month followup of right breast nodules. Correlation is made with right breast ultrasound from 03/26/2017. FINDINGS: The hypoechoic macrolobulated mass at the 9 o'clock location of the right breast 4 cm from the nipple is again seen measuring 1.5 x 0.9 x 1.5 cm. This compares with 1.7 x 0.9 x 1.5 cm on prior. Second nodule is seen 9:30 location 4 cm from the nipple measuring 0.9 x 0.4 x 0.5 cm. This compares with 1.1 x 0.5 x 0.6 cm on prior exam. No new mass is seen. 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 Followup right breast ultrasound in 6 months recommended to show continued stability. ACR BI-RADS Category 3: Probably benign findings. Dictated by: Dictated on workstation # [id number]
== END ==
LOC: RAD 08:02
PROVIDERS: ATTEND Family Medicine
DX: N63.10 Unspecified lump in the right breast, unspecified quadrant (principal)

== ENCOUNTER 2019-07-05 07:47 | Day surgery (SDC) | payer SELFPAY ==
[~2019-07-05] VITALS: Ht 154.9 cm; Wt 56.0 kg
[2019-07-05] VITALS (9 sets, daily range): BP systolic 94–99; BP diastolic 63–74
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
[2019-07-05 08:51] LABS: BASOPHILS # (AUTO) 0.1 10^3/uL (0.0-0.1); BASOPHILS % (AUTO) 2 % (0-10); EOSINOPHILS # (AUTO) 0.2 10^3/uL (0.0-0.3); EOSINOPHILS % (AUTO) 5 % (0-10); HEMATOCRIT 31 % (35-52); HEMOGLOBIN 9.9 G/DL (11.5-16.0); LYMPHOCYTES % (AUTO) 29 % (12-44); MEAN CORPUSCULAR HEMOGLOBIN 25 PG (25-34); MEAN CORPUSCULAR HGB CONC 32 G/DL (32-36); MEAN CORPUSCULAR VOLUME 77 FL (80-99); MEAN PLATELET VOLUME 10.8 FL (7.4-10.4); MONOCYTES # (AUTO) 0.3 X 10^3 (0.0-1.0); MONOCYTES % (AUTO) 9 % (0-12); NEUTROPHILS % (AUTO) 55 % (42-75); PLATELET COUNT 384 10^3/uL (130-400); RED CELL DISTRIBUTION WIDTH 17.6 % (10.0-14.5); WHITE BLOOD COUNT 3.6 10^3/uL (4.3-11.0)
[2019-07-05 09:02] LABS: PROTHROMBIN TIME PATIENT 13.5 SEC (12.2-14.7)
--- NOTE | 2019-07-05 09:02 | ED Chest Pain ---
General Chief Complaint: General Problems/Pain Stated Complaint: LEFT SIDE OF FACE TWITCHING Nursing Triage Note: AMB TO ROOM WITHOUT PROBEM REPORTS SINCE YESTERDAY WAS HAVING FACIAL TWICHING. WITH ABD CRAMPING DID TAKE MEDS FOR CRAMPING WICH HELPED. FOR 2 DAYS HAS HAD PRESSURE IN CENTER OF CHEST AND ALSO REPORT BOTH HAND FEEL NUMB. Nursing Sepsis Screen: No Definite Risk Source: patient Exam Limitations: no limitations History of Present Illness Date Seen by Provider: July 05, 2019 Time Seen by Provider: 08:20 Initial Comments This 43-year-old woman presents to emergency room with multiple complaints including chest pain that occurred last night and then again this morning at 07:00. She also complains of a twitching and drooping of the left side of the face. The drooping was observed at home and is not observable to this examiner here. She does have some subtle muscle twitching of the left side of the face. Patient reports history of seizure-like activity. This activity is not generalized seems more focal and manifests as twitching. She takes Topamax for these symptoms. She has not yet been to a neurologist. Patient did report having some vomiting and abdominal pain yesterday. She denies as she is currently on her menstrual cycle. She does suffer from insomnia, anxiety, and vertigo from time to time. Allergies and Home Medications Allergies Coded Allergies: No Known Drug Allergies (Unverified , 02/27/14) Home Medications Hydrocodone/Acetaminophen 1 Each Tablet, 1 EACH PO Q4H PRN for PAIN-MODERATE TO SEVERE Prescribed by: BONI ZAMUDIO on 09/17/17 4806 Patient Home Medication List Home Medication List Reviewed: Yes Review of Systems Review of Systems Constitutional: no symptoms reported EENTM: No Symptoms Reported Respiratory: No Symptoms Reported Cardiovascular: See HPI Gastrointestinal: No Symptoms Reported Genitourinary: No Symptoms Reported Musculoskeletal: no symptoms reported Skin: no symptoms reported Psychiatric/Neurological: See HPI Endocrine: No Symptoms Reported Hematologic/Lymphatic: No Symptoms Reported Past Shvldkh-Cnlfty-Cbrbrr Hx Past Med/Social Hx: Reviewed and Corrections made Patient Social History Alcohol Use: Denies Use Recreational Drug Use: No Smoking Status: Never a Smoker 2nd Hand Smoke Exposure: No Recent Foreign Travel: No Contact w/Someone Who Travel: No Recent Infectious Disease Expo: No Seasonal Allergies Seasonal Allergies: No Past Medical History Surgeries: Yes Abdominal (pyloric stenosis), Section Respiratory: No Cardiac: No Neurological: Yes (chronic tremors versus focal seizures) Vertigo : No Last Menstrual Period: July 05, 2019 Reproductive Disorders: No Gastrointestinal: No Musculoskeletal: No Endocrine: No HEENT: No Cancer: No Psychosocial: No Integumentary: No Blood Disorders: No Physical Exam Vital Signs Vital Signs - First Documented 07/05/19 07:55 Temp 37.0 Pulse 87 Resp 18 B/P (MAP) 112/71 (85) Pulse Ox 100 O2 Delivery Room Air Capillary Refill : Less Than 3 Seconds Height, Weight, BMI Height: 5'2.00" Weight: 110lbs. oz. 49.246738pc; 23.00 BMI Method:Stated General Appearance: WD/WN, Anxious, Thin HEENT: PERRL/EOMI, TMs Normal, Normal ENT Inspection, Pharynx Normal Neck: Normal Inspection Respiratory: Chest Non Tender, Lungs Clear, Normal Breath Sounds, No Accessory Muscle Use, No Respiratory Distress Cardiovascular: Regular Rate, Rhythm, No Edema, No Murmur, Normal Peripheral Pulses Gastrointestinal: Non Tender, Soft Extremity: Normal Inspection, Non Tender, No Calf Tenderness, No Pedal Edema Neurologic/Psychiatric: Alert, Oriented x3, No Motor/Sensory Deficits, paddock judge II- XII Norm as Tested, Other (anxious, nearing tearful. Subtle low-frequency tremors of the left face. Occasional tremors of the trunk. No facial droop or weakness of the extremities noted) Skin: Normal Color, Warm/Dry Progress/Results/Core Measures Results/Orders Lab Results Laboratory Tests Test 07/05/19 08:42 07/05/19 11:00 07/05/19 11:10 Range/Units White Blood Count 3.6 L 4.3-11.0 10^3/uL Red Blood Count 4.02 L 4.35-5.85 10^6/uL Hemoglobin 9.9 L 11.5-16.0 G/DL Hematocrit 31 L 35-52 % Mean Corpuscular Volume 77 L 80-99 FL Mean Corpuscular Hemoglobin 25 25-34 PG Mean Corpuscular Hemoglobin Concent 32 32-36 G/DL Red Cell Distribution Width 17.6 H 10.0-14.5 % Platelet Count 384 130-400 10^3/uL Mean Platelet Volume 10.8 H 7.4-10.4 FL Neutrophils (%) (Auto) 55 42-75 % Lymphocytes (%) (Auto) 29 12-44 % Monocytes (%) (Auto) 9 0-12 % Eosinophils (%) (Auto) 5 0-10 % Basophils (%) (Auto) 2 0-10 % Neutrophils # (Auto) 2.0 1.8-7.8 X 10^3 Lymphocytes # (Auto) 1.0 1.0-4.0 X 10^3 Monocytes # (Auto) 0.3 0.0-1.0 X 10^3 Eosinophils # (Auto) 0.2 0.0-0.3 10^3/uL Basophils # (Auto) 0.1 0.0-0.1 10^3/uL Erythrocyte Sedimentation Rate 7 0-20 MM/HR Prothrombin Time 13.5 12.2-14.7 SEC INR Comment 1.0 0.8-1.4 Activated Partial Thromboplast Time 29 24-35 SEC Fibrinogen 236 221-496 MG/DL D-Dimer 0.55 H 0.00-0.49 UG/ML Sodium Level 139 135-145 MMOL/L Potassium Level 3.9 3.6-5.0 MMOL/L Chloride Level 113 H 98-107 MMOL/L Carbon Dioxide Level 20 L 21-32 MMOL/L Anion Gap 6 5-14 MMOL/L Blood Urea Nitrogen 10 7-18 MG/DL Creatinine 0.85 0.60-1.30 MG/DL Estimat Glomerular Filtration Rate > 60 BUN/Creatinine Ratio 12 Glucose Level 92 70-105 MG/DL Calcium Level 8.6 8.5-10.1 MG/DL Corrected Calcium 8.6 8.5-10.1 MG/DL Magnesium Level 2.1 1.6-2.4 MG/DL Total Bilirubin 0.3 0.1-1.0 MG/DL Aspartate Amino Transf (AST/SGOT) 15 5-34 U/L Alanine Aminotransferase (ALT/SGPT) 11 0-55 U/L Alkaline Phosphatase 55 40-136 U/L Myoglobin 27.1 10.0-92.0 NG/ML Troponin I < 0.028 0.033 H <0.028 NG/ML Total Protein 6.8 6.4-8.2 GM/DL Albumin 4.0 3.2-4.5 GM/DL Serum Test, Qualitative NEGATIVE NEGATIVE C-Reactive Protein High Sensitivity 0.05 0.00-0.50 MG/DL My Orders Orders - CASE LANGSTON MD Cbc With Automated Diff (07/05/19:) Magnesium (07/05/19:) Chest 1 View, Ap/Pa Only (07/05/19) Ekg Tracing (07/05/19:) Comprehensive Metabolic Panel (07/05/19) Myoglobin Serum (07/05/19) Protime With Inr (07/05/19) Partial Thromboplastin Time (07/05/19:) O2 (07/05/19:) Monitor-Rhythm Ecg Trace Only (07/05/19) Lipid Panel (07/06/19 06:00) Ed Iv/Invasive Line Start (07/05/19:) Troponin I (07/05/19:) Hcg,Qualitative Serum (07/05/19:) Troponin I (07/05/19 11:00) Nitroglycerin 0.4 Mg Btl 25's (Nitrostat (07/05/19 12:00) Aspirin Chewable Tablet (Baby Aspirin Ch (07/05/19 12:00) Ekg Tracing (07/05/19 11:54) Fibrin Degradation Products (07/05/19 12:10) Ct Angio Chest W (07/05/19 12:36) Iohexol Injection (Omnipaque 350 Mg/Ml 1 (07/05/19 12:45) Sodium Chloride Flush (Catheter Flush Sy (07/05/19 12:45) Ns (Ivpb) (Sodium Chloride 0.9% Ivpb Bag (07/05/19 12:45) Received Contrast (Hold Metformin- Contr (07/05/19 12:45) Lorazepam Injection (Ativan Injection) (07/05/19 12:45) Hs C Reactive Protein (07/05/19 13:52) Erythrocyte Sedimentation Rate (07/05/19 13:52) Medications Given in ED Current Medications Medications Dose Ordered Sig/Tracee Route Start Time Stop Time Status Last Admin Dose Admin Aspirin 324 mg ONCE ONCE PO 07/05/19 12:00 07/05/19 12:01 DC 07/05/19 11:59 324 MG Iohexol 100 ml ONCE ONCE IV 07/05/19 12:45 07/05/19 12:46 DC 07/05/19 13:05 75 ML Lorazepam 0.5 mg ONCE ONCE IVP 07/05/19 12:45 07/05/19 12:46 DC 07/05/19 12:48 0.5 MG Nitroglycerin 0.4 mg UD PRN SL 07/05/19 12:00 07/05/19 12:01 0.4 MG Sodium Chloride 10 ml NEEDED PRN IV 07/05/19 12:45 07/05/19 13:05 10 ML Sodium Chloride 100 ml ONCE ONCE IV 07/05/19 12:45 07/05/19 12:46 DC 07/05/19 13:05 80 ML Vital Signs/I&O 07/05/19 07:55 Temp 37.0 Pulse 87 Resp 18 B/P (MAP) 112/71 (85) Pulse Ox 100 O2 Delivery Room Air Blood Pressure Mean: 85 Progress Progress Note #1: Time: 12:50 Progress Note Initial cardiopulmonary workup was unremarkable. A repeat troponin was drawn around 11:00 for a 4 hour rule out. Unfortunately, this troponin level was slightly elevated. Case was discussed with Dr. Bland who recommended also screening for pulmonary embolus. D-dimer was added and was also slightly elevated. CT angiogram chest is pending. Patient is quite anxious and received Ativan prior to CT scan. She still has twitching of the face but no facial drooping has been noted after initial evaluation and reevaluation. Repeat EKG was unremarkable. Patient initially stated she had no chest pain after arrival. However, during reassessment she reported she has had chest TIGHTNESS that she rates as 3/10. Aspirin 324 mg and nitroglycerin were administered. The nitroglycerin had no effect. She also describes 2 or 3 months of pain running down the lateral right leg from the hip through the ankle. Prior to that she had been noticing pain in her lower back. Progress Note #2: Time: 14:[address] angiogram of the chest was negative. Dr. Bland has been here to visit with the patient. Risks and benefits of angiogram have been discussed. Patient elects to proceed with angiogram. CRP and ESR have been added to evaluate for possible pericarditis. In regard to patient's other symptoms such as the pain running down the lateral portion of her right leg and the various twitches she experiences, these do not seem to be emergent issues and are more chronic in nature. We discussed further workup that may be pursued on an outpatient basis such as MRI, screening for autoimmune disorders, etc. For now, the priority is to rule out life-threatening conditions such as coronary artery disease and pulmonary embolism. Patient expressed understanding and is agreeable to the plan. Initial ECG Impression Date: July 05, 2019 Initial ECG Impression Time: 08:31 Initial ECG Rate: 76 Initial ECG Rhythm: Normal Sinus Initial ECG Intervals: Normal Initial ECG Impression: Normal Comment Normal sinus rhythm with no ST elevation or depression. No abnormal intervals or axis deviation. EKG : EKG Time: 12:04 Rate: 79 Rhythm: Normal Sinus Intervals: Normal ECG Comparisson: Unchanged ECG Impression: Normal Comment Normal sinus rhythm with no ST elevation or depression. No abnormal intervals or axis deviation. Diagnostic Imaging Diagonstic Imaging: Xray Plain Films/CT/US/NM/MRI: chest Comments NAME: ANDIKAE [facility] REC#: [id number] PT STATUS: REG ER : 1975 PHYSICIAN: CASE LANGSTON MD ADMIT DATE: 07/05/19/ER Signed Date of Exam:07/05/19 CHEST 1 VIEW, AP/PA ONLY EXAM: CHEST 1 VIEW, AP/PA ONLY INDICATION: Left-sided facial tingling and numbness. COMPARISON: None. FINDINGS: Normal heart size and pulmonary vascularity. No dense consolidation, pleural effusion or pneumothorax. No acute osseous findings. IMPRESSION: No acute cardiopulmonary findings. Dictated by: Dictated on workstation # [id number] Dict: 07/05/19 0900 Trans: 07/05/19 1126 [facility] [id number] Interpreted by: PATRICE VERDE MD Electronically signed by: PATRICE VERDE MD 07/05/19 1126 Diagonstic Imaging: CT Plain Films/CT/US/NM/MRI: chest Comments NAME: KAE ESCAMILLA [facility] REC#: [id number] PT STATUS: REG ER : 1975 PHYSICIAN: CASE LANGSTON MD ADMIT DATE: 07/05/19/ER Signed Date of Exam:07/05/19 CT ANGIO CHEST W PROCEDURE: CT angiography of the chest with contrast. TECHNIQUE: Multiple contiguous axial images were obtained through the chest after uneventful bolus administration of intravenous contrast. 3D reconstructed CTA MIP acquisitions were also performed. Auto Exposure Controls were utilized during the CT exam to meet ALARA standards for radiation dose reduction. INDICATION: Left-sided facial tingling and numbness. Concern for pulmonary embolism. COMPARISON: Chest radiograph performed earlier the same date. FINDINGS: This helical CT pulmonary angiogram is diagnostic to the subsegmental level branches of the pulmonary artery and demonstrates no pulmonary emboli. The heart and great vessels are unremarkable. There is no pericardial effusion. There is no axillary, mediastinal, or hilar adenopathy. The lungs demonstrate no consolidation, nodules, or other parenchymal abnormality. No pleural effusion is seen. Osseous structures appear normal. Limited views of the upper abdomen are unremarkable. IMPRESSION: 1. No acute pulmonary embolus. 2. No focal consolidation or pulmonary mass. No pleural effusions. Dictated by: Dictated on workstation # [id number] Dict: 07/05/19 1307 Trans: 07/05/19 1313 [facility] [id number] Interpreted by: LONI NUR DO Electronically signed by: LONI NUR DO 07/05/19 1313 Departure Communication (Admissions) Time/Spoke to Admitting Phy: 12:10 Dr. Ponce Time/Spoke to Consulting Phy: 13:45 Dr. Bland Impression Primary Impression: Elevated troponin Additional Impressions: Chest pain Qualified Codes: R07.9 - Chest pain, unspecified Facial twitching Elevated d-dimer Anxiety Right leg pain Disposition: ADMITTED INPATIENT Condition: Stable Admissions Decision to Admit Reason: Admit from ER (Trauma) Decision to Admit/Date: July 05, 2019 Time/Decision to Admit Time: 12:10 Departure-Patient Inst. Referrals: NETTE WRAY MD (PCP/Family) Primary Care Physician CASE LANGSTON MD July 05, 2019 09:02
[2019-07-05 09:03] LABS: CHLORIDE 113 MMOL/L (98-107); POTASSIUM 3.9 MMOL/L (3.6-5.0); SODIUM 139 MMOL/L (135-145)
[2019-07-05 09:04] LABS: CALCIUM 8.6 MG/DL (8.5-10.1)
[2019-07-05 09:05] LABS: GLUCOSE 92 MG/DL (70-105); TOTAL PROTEIN 6.8 GM/DL (6.4-8.2)
[2019-07-05 09:06] LABS: CARBON DIOXIDE 20 MMOL/L (21-32)
[2019-07-05 09:07] LABS: BILIRUBIN,TOTAL 0.3 MG/DL (0.1-1.0)
[2019-07-05 09:09] LABS: ALKALINE PHOSPHATASE 55 U/L (40-136); CREATININE SERUM 0.85 MG/DL (0.60-1.30)
[2019-07-05 09:10] LABS: BUN/CREATININE RATIO 12
[2019-07-05 09:11] LABS: GFR ESTIMATED > 60
[2019-07-05 09:12] LABS: ALANINE AMINOTRANSFERASE 11 U/L (0-55); MAGNESIUM 2.1 MG/DL (1.6-2.4)
--- NOTE | 2019-07-05 11:33 | NUR ---
TO ROOM WATER GIVEN
[2019-07-05] MEDS ORDERED: NITROGLYCERIN 0.4 MG SL TABS BTL 25'S SL PRN (12:00)
[2019-07-05] MEDS ORDERED: ASPIRIN 81 MG CHEW (CHILDREN'S ASA) PO ONE (12:00)
[2019-07-05] MEDS ORDERED: HOLD METFORMIN - RECEIVED CONTRAST 20 ML VIAL IV SCH (12:45)
[2019-07-05] MEDS ORDERED: IOHEXOL 350 MG/ML 100 ML (OMNIPAQUE 350) VIAL IV ONE (12:45)
[2019-07-05] MEDS ORDERED: LORazepam INJ 2 MG/ML (ATIVAN) VIAL IVP ONE (12:45)
[2019-07-05] MEDS ORDERED: CATHETER FLUSH 10 ML SYR IV PRN (12:45)
[2019-07-05] MEDS ORDERED: NS 100 ML (IVPB) BAG IV ONE (12:45)
--- NOTE | 2019-07-05 13:10 | NUR ---
TO BACK FROM CT FEELING BETTER AFTER ATIJVAN GIVEN
--- NOTE | 2019-07-05 13:12 | Diagnostic Imaging Report ---
PROCEDURE: CT angiography of the chest with contrast. TECHNIQUE: Multiple contiguous axial images were obtained through the chest after uneventful bolus administration of intravenous contrast. 3D reconstructed CTA MIP acquisitions were also performed. Auto Exposure Controls were utilized during the CT exam to meet ALARA standards for radiation dose reduction. INDICATION: Left-sided facial tingling and numbness. Concern for pulmonary embolism. COMPARISON: Chest radiograph performed earlier the same date. FINDINGS: This helical CT pulmonary angiogram is diagnostic to the subsegmental level branches of the pulmonary artery and demonstrates no pulmonary emboli. The heart and great vessels are unremarkable. There is no pericardial effusion. There is no axillary, mediastinal, or hilar adenopathy. The lungs demonstrate no consolidation, nodules, or other parenchymal abnormality. No pleural effusion is seen. Osseous structures appear normal. Limited views of the upper abdomen are unremarkable. IMPRESSION: 1. No acute pulmonary embolus. 2. No focal consolidation or pulmonary mass. No pleural effusions. Dictated by: Dictated on workstation # [id number]
--- NOTE | 2019-07-05 13:25 | NUR ---
DR BELTRE HERE TO SEE PATIENT.
[2019-07-05] MEDS ORDERED: NITRO DRIP 25000 MCG/D5W 250 ML IV ONE (13:47)
[2019-07-05] MEDS ORDERED: LIDOCAINE 1% INJ 20 ML 20 ML VIAL ONE (13:47)
[2019-07-05] MEDS ORDERED: VERAPAMIL 5 MG/2 ML (CALAN) VIAL IV ONE (13:47)
[2019-07-05] MEDS ORDERED: NS IV 1000 ML 1,000 ML ONE (13:47)
[2019-07-05] MEDS ORDERED: HEParin 1000 UNIT/ML (10ML VIAL) FOR BOLUS ONE (13:47)
[2019-07-05] MEDS ORDERED: HEParin (CATH LAB) 2,000 ML IV ONE (13:48)
[2019-07-05] MEDS ORDERED: MIDAZOLAM 5 MG/5 ML (VERSED) VIAL ONE (13:49)
[2019-07-05] MEDS ORDERED: fentaNYL INJECTION 100 MCG/2 ML AMP ONE (13:50)
--- NOTE | 2019-07-05 14:04 | NUR ---
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
[2019-07-05] MEDS ORDERED: NS IV 1000 ML 1,000 ML IV SCH ×2 (14:30→15:00)
--- NOTE | 2019-07-05 14:56 | Consultation-Cardiology ---
HPI-Cardiology Cardiology Consultation: Date of Consultation 07/05/19 Date of Admission Attending Physician Nolan Bland MD Admitting Physician Nany Martinez MD Consulting Physician Nolan BLAND MD HPI: Time Seen by a Provider: 13:00 Chief Complaint: Chest tightness This is a 43-year-old lady who denies any significant cardiac risk factors or previous cardiac history. She has history of possible seizures and is on Topamax. She presented to the ER with multiple complaints including chest pain/tightness which occurred last night and again this morning she also complained of twitching and drooping of the left side of the face. She is also had pain in her right lower extremity previously. She also had an episode of vomiting and abdominal pain yesterday. She denies active smoking or street drugs. Her grandfather due to coronary disease. The chest tightness is substernal with no radiation. No exacerbating or relieving factors. Mild intensity. 03/24. Review of Systems-Cardiology Review of Systems Constitutional: As described under HPI; No As described under HPI, No no symptoms reported, No chills, No fever, No lightheadedness Eyes: No As described under HPI, No no symptoms reported, No blindness, No blurred vision, No contact lenses, No drainage, No decreased acuity, No foreign body sensation, No pain, No vision change Ears/Nose/Throat: No As described under HPI, No no symptoms reported, No chronic hearing loss, No ear discharge, No ear pain, No nasal drainage, No ulcerations Respiratory: No no symptoms reported; As described under HPI; No As described under HPI, No cough, No orthopnea, No shortness of breath, No SOB with excertion Cardiovascular: No no symptoms reported; As described under HPI; No As described under HPI; chest pain; No edema, No irregular heart rate, No lightheadedness, No palpitations Gastrointestinal: No no symptoms reported, No As described under HPI, No abdomen distended, No abdominal pain, No blood streaked bowels, No constipation, No diarrhea, No nausea, No vomiting, No stool coloration changes Genitourinary: No As described under HPI, No burning, No dysuria, No discharge, No frequency, No flank pain, No hematuria, No urgency : Yes : No Skin: No rash, No skin related problems, No ulcerations Psychiatric/Neurological: As described under HPI; No anxiety, No depression, No seizure, No focal weakness, No syncope Hematologic: No bleeding abnormalities NUX-Chcnpx-Rvbipz Hx Patient Social History Alcohol Use: Denies Use Recreational Drug Use: No Smoking Status: Never a Smoker 2nd Hand Smoke Exposure: No Recent Foreign Travel: No Recent Infectious Disease Expo: No Hospitalization with Isolation: Denies Past Medical History PMH As described under Assessment. Allergies and Home Medications Allergies Coded Allergies: No Known Drug Allergies (Unverified , 02/27/14) Home Medications Hydrocodone/Acetaminophen 1 Each Tablet, 1 EACH PO Q4H PRN for PAIN-MODERATE TO SEVERE Prescribed by: BONI ZAMUDIO on 09/17/17 6198 Patient Home Medication List Home Medication List Reviewed: Yes Physical Exam-Cardiology Physical Exam Vital Signs/I&O 07/05/19 07/05/19 07:55 14:09 Temp 37.0 Pulse 87 86 Resp 18 18 B/P (MAP) 112/71 (85) 132/73 Pulse Ox 100 96 O2 Delivery Room Air Room Air Capillary Refill : Less Than 3 Seconds Constitutional: appears stated age, AAO x 3; No apparent distress; well- developed, well-nourished HEENT: PERRL; No discharge; hearing is well preserved, oral hygience is good; No ulceration, No xanthelasmas are seen Neck: No carotid bruit; carotid pulses are 2 + bilaterally Respiratory: chest is bilaterally symmetric, lungs clear to auscultation Cardiovascular: regular rate-rhythm, S1 and S2 Gastrointestinal: soft, audible bowel sounds; No spleenomegaly Rectal: deferred Extremities: normal range of motion, non-tender, normal inspection; No clubbing, No cyanosis; no lower extremity edema bilateral; No significant edema Neurologic/Psychiatric: no motor/sensory deficits, alert, normal mood/affect, oriented x 3, power is 5/5 both on sides Skin: normal color, warm/dry; No rash, No ulcerations Data Review Labs Laboratory Tests 07/05/19 08:42: White Blood Count 3.6L, Red Blood Count 4.02L, Hemoglobin 9.9L, Hematocrit 31L, Mean Corpuscular Volume 77L, Mean Corpuscular Hemoglobin 25, Mean Corpuscular Hemoglobin Concent 32, Red Cell Distribution Width 17.6H, Platelet Count 384, Mean Platelet Volume 10.8H, Neutrophils (%) (Auto) 55, Lymphocytes (%) (Auto) 29, Monocytes (%) (Auto) 9, Eosinophils (%) (Auto) 5, Basophils (%) (Auto) 2, Neutrophils # (Auto) 2.0, Lymphocytes # (Auto) 1.0, Monocytes # (Auto) 0.3, Eosinophils # (Auto) 0.2, Basophils # (Auto) 0.1, Erythrocyte Sedimentation Rate 7, Prothrombin Time 13.5, INR Comment 1.0, Activated Partial Thromboplast Time 29, D-Dimer 0.55H, Sodium Level 139, Potassium Level 3.9, Chloride Level 113H, Carbon Dioxide Level 20L, Anion Gap 6, Blood Urea Nitrogen 10, Creatinine 0.85, Estimat Glomerular Filtration Rate > 60, BUN/Creatinine Ratio 12, Glucose Level 92, Calcium Level 8.6, Corrected Calcium 8.6, Magnesium Level 2.1, Total Bilirubin 0.3, Aspartate Amino Transf (AST/SGOT) 15, Alanine Aminotransferase (ALT/SGPT) 11, Alkaline Phosphatase 55, Myoglobin 27.1, Troponin I < 0.028, Total Protein 6.8, Albumin 4.0, Serum Test, Qualitative NEGATIVE 07/05/19 11:00: C-Reactive Protein High Sensitivity 0.05 07/05/19 11:10: Troponin I 0.033H ECG Impression ECG Initial ECG Rhythm: Normal Sinus Initial ECG Impression: Normal A/P-Cardiology Assessment/Admission Diagnosis Chest pain, borderline positive troponin, Anemia, History of seizures, Right lower extremity sciatica, Positive D dimer Plan Chest pain, borderline positive troponin, atypical history. No significant CAD risk factors. I discussed at length with the patient and discussed various options to rule out CAD including nuclear stress testing and coronary angiography. Due to positive troponins, coronary angiography is a reasonable option to rule out significant CAD. Alternate diagnosis could be myopericarditis. Informed consent was taken. 1 percent risk of complication include vessel damage, heart damage, stroke and even was discussed. Patient accepted all risks and complication and would like to proceed with coronary angiography. Possible myopericarditis if coronary angiography is negative. CRP was requested which was negative. Positive D dimer, CT chest is negative for PE. Anemia, deferred to the primary team. History of seizures, on Topamax. Possible Right lower extremity sciatica. Patient has possible neurological nerve like symptoms in the right lower extremity as well as left face. Neurological evaluation is recommended. Thank you for your consultation. Please call me if you have any questions. Marichuy Bland MD, FACP, FACC, FSCAI, FHRS, CCDS Interventional Cardiology Cardiac Electrophysiology Vascular Medicine and Endovascular Interventions Nolan BLAND MD July 05, 2019 14:55
--- NOTE | 2019-07-05 14:56 | Cardiac Procedure Note-CS/ASA ---
Pre-Procedure Note Pre-Op Procedure Note H&P Reviewed The H&P was reviewed, patient examined and no changes noted. Date H&P Reviewed: July 05, 2019 Time H&P Reviewed: 14:00 Conscious Sedation Pre-Proced Time 14:00 ASA Score 3 For ASA 3 and 4: Consider anesthesia and medical clearance. Also, for patients with a history of failed moderate sedation consider anesthesia. Airway Lungs Heart ASA score ASA 1: a normal healthy patient ASA 2: a patient with a mild systemic disease (mid diabetes, controlled hypertension, obesity ASA 3: a patient with a severe systemic disease that limits activity (angina, COPD, prior Myocardial infarction) ASA 4: a patient with an incapacitating disease that is a constant threat to life (CHF, renal failure) ASA 5: a moribund patient not expected to survive 24 hrs. (ruptured aneurysm) ASA 6: a declared brain- patient whose organs are being harvested. For emergent operations, add the letter E after the classification Mallampati Classification Grade 1 Sedation Plan Analgesia, Amnesia, Plan communicated to team members, Discussed options with patient/fam, Discussed risks with patient/fam The patient is an appropriate candidate to undergo the planned procedure, sedation, and anesthesia. The patient immediately re-assessed prior to indication. Nolan BELTRE MD July 05, 2019 14:56
[2019-07-05] MEDS ORDERED: PATIENT MAY USE OWN MEDS, ALL PO SCH (15:00)
--- NOTE | 2019-07-05 15:00 | Coronary Angiography Report ---
Coronary Angiography Report DATE OF PROCEDURE: 07/05/19 INDICATION: Chest pain, borderline positive troponin. PREOPERATIVE DIAGNOSIS: Chest pain, borderline positive troponin. POSTOPERATIVE DIAGNOSIS: Patent epicardial coronary arteries. HISTORY: This is a 43-year-old lady who presented with chest pain/chest tightness with positive troponins. Therefore, the patient was scheduled for coronary angiography. PROCEDURES PERFORMED: 1.Coronary angiography. 2.Left heart catheterization. 3. Aortic arch angiogram. Medical necessity: To rule out aortic aneurysm/dissection in a patient with chest pain and patent epicardial coronary arteries. COMPLICATIONS: None. SPECIMENS: None. ESTIMATED BLOOD LOSS: 10 mL ANESTHESIA: Conscious sedation ANTICOAGULATION: IV heparin CONTRAST: 41 mL. FLUOROSCOPY: 4.59 minutes. FLOUROSCOPY DOSE: 106 mgy. PROCEDURE DETAILS: The patient is a 43 female and was brought to the labor relations consultant after informed consent was taken. All the risks and complications were explained in detail; this included the risk of bleeding, vascular damage, stroke, SC and even . The patient was draped and prepped in the usual sterile fashion. We attempted to gain access in the right radial artery. We were able to get a wire but were not able to advance. We therefore got access in the right femoral artery with a 5 Lao sheath. Coronary angiography, left heart catheterization, aortic arch angiogram were done with a JR4 and JL4 catheter. FINDINGS: 1.Left main: Patent. 2.LAD: Patent. 3.Left circumflex artery: Patent. 4.RCA: Patent. 5.Left heart catheterization: LV pressure 97/6 mmHg. LVEDP 9 mmHg. Aortic pressure 103/68 mmHg. Normal LV function with no wall motion abnormalities. No gradient across the aortic valve. 6. Aortic arch angiogram: No evidence of proximal aortic aneurysm or dissection. Patent proximal segments of the great arteries. CONCLUSIONS: Patent epicardial coronary arteries. Continue primary prevention measures. Chest discomfort, borderline positive troponin could be secondary to mild viral myocarditis. Marichuy Bland MD, FACP, FACC, [facility] Interventional Cardiology Nolan BLAND MD July 05, 2019 15:00
--- NOTE | 2019-07-05 15:00 | NUR ---
Pt to room from Cath. Report received from YOMAIRA Foley. Plan for pt is to be discharged after bedrest. No complaints. Vitals stable. Will continue to monitor.
--- NOTE | 2019-07-05 21:00 | NUR ---
At 2099 this RN at patient's bedside. Patient is COVID r/o so she is unable to walk halls but this RN did walk her around room. Patient VSS and right groin (heart cath insertion site) is soft and dressing is c/d/i. This RN went over discharge information and answered patient's questions regarding discharge. At 2109 This RN accompanied by manager of housekeeping, Jerri BURNETTE, walked patient outside.
== END 2019-07-05 21:10 | disposition home or self-care (01) ==
LOC: EDUNIT# 07:47 → ER 07:49 → CATH 13:54 → ICU 15:03 → CATH 21:10
PROVIDERS: ATTEND Internal Medicine Interventional Cardiology
DX: R07.89 Other chest pain (principal); G47.00 Insomnia, unspecified; R79.89 Other specified abnormal findings of blood chemistry; R42 Dizziness and giddiness; R25.3 Fasciculation; D64.9 Anemia, unspecified; M79.604 Pain in right leg; R56.9 Unspecified convulsions; F41.9 Anxiety disorder, unspecified; Z79.899 Other long term (current) drug therapy; Z79.891 Long term (current) use of opiate analgesic
CPT/HCPCS: 36140; 36221; 36415; 71045; 71275; 80051; 80053; 83735; 83874; 84484; 84703; 85025; 85379; 85384; 85610; 85652; 85730; 86141; 87635; 93005; 93041; 93458

== ENCOUNTER 2019-09-30 15:14 | Emergency (ER) | payer SELFPAY ==
[~2019-09-30] VITALS: Ht 157.4 cm; Wt 56.4 kg
[2019-09-30] MEDS ORDERED: ONDANSETRON 4 MG (ZOFRAN) ORAL DISSOLVE TAB SL STA (17:00)
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
[2019-09-30 17:08] LABS: BILIRUBIN,URINE NEGATIVE (NEGATIVE); CLARITY,URINE CLEAR; COLOR,URINE YELLOW; GLUCOSE, URINE (UA) NEGATIVE (NEGATIVE); KETONES,URINE NEGATIVE (NEGATIVE); LEUKOCYTE ESTERASE ,URINE NEGATIVE (NEGATIVE); NITRITE,URINE NEGATIVE (NEGATIVE); PROTEIN,URINE NEGATIVE (NEGATIVE)
[2019-09-30] MEDS ORDERED: CYCLOBENZAPRINE 10 MG (FLEXERIL) TAB PO STA (17:14)
[2019-09-30 17:16] LABS: AMORPHOUS SEDIMENT,UR RARE AMOR URATES /LPF; BACTERIA,URINE NEGATIVE /HPF
[2019-09-30] MEDS ORDERED: TRM50T PO (17:28)
[2019-09-30] MEDS ORDERED: CYCL10TA9 PO (17:28)
[2019-09-30] MEDS ORDERED: ONDA4TAB11 PO (17:29)
[2019-09-30 17:37] VITALS: BP 122/71
== END 2019-09-30 17:37 | disposition home or self-care (01) ==
LOC: EDUNIT# 15:14 → ER 15:16
DX: S09.90XA Unspecified injury of head, initial encounter (principal); S00.03XA Contusion of scalp, initial encounter; Y04.8XXA Assault by other bodily force, initial encounter; Y92.039 Unspecified place in apartment as the place of occurrence of the external cause
CPT/HCPCS: 81000